=== PATIENT | male | born 1965 | race Two or more races ===

== ENCOUNTER 2018-12-06 18:55 | Emergency (ER) | payer OTHER ==
[~2018-12-06] VITALS: Ht 180.3 cm; Wt 104.3 kg
[~2018-12-06 18:55] MED LIST: FIORICET 50-301 EACH PO
[2018-12-06] MEDS ORDERED: LOSARTAN-HCTZ1 EAC2 (20:24)
== END 2018-12-06 22:10 | disposition home or self-care (01) ==
LOC: ER 18:55
DX: R07.89 Other chest pain (principal); I10 Essential (primary) hypertension

== ENCOUNTER 2023-04-14 11:28 | Emergency (ER) | payer OTHER ==
[~2023-04-14] VITALS: Ht 182.9 cm; Wt 95.3 kg
[~2023-04-14 11:28] MED LIST changes: +LOSARTAN-HCTZ1 EAC2
[2023-04-14] MEDS ORDERED: VALSARTAN320 MG PO (13:30)
[2023-04-14 18:18] LABS: HEMATOCRIT 47.7 % (39.0-48.0); HEMOGLOBIN 16.1 g/dL (13-16.00); MEAN CELL VOLUME 89.3 fL (80.0-100.00); MEAN CORPUSCULAR HEMOGLOBIN 30.1 pg (27.00-32.0); MEAN CORPUSCULAR HGB CONC 33.7 g/dl (32.0-36.0); PLATELET COUNT 153 K/uL (150-450); RED BLOOD COUNT 5.34 M/uL (4.00-6.00); RED CELL DISTRIBUTION WIDTH 12.6 % (11.5-14.5)
[2023-04-14 18:42] LABS: CALCIUM 9.1 mg/dL (8.5-10.1); CREATININE SERUM 1.54 mg/dL (0.70-1.30); GFR 46.96; POTASSIUM 3.78 mEq/L (3.5-5.1)
== END 2023-04-14 19:20 | disposition home or self-care (01) ==
LOC: ER 11:28
PROVIDERS: General Practice
DX: I10 Essential (primary) hypertension (principal); Z91.013 Allergy to seafood